=== PATIENT | male | born 1970 | race Caucasian/White ===

== ENCOUNTER → 2023-10-28 06:50 | Outpatient (REF) | payer OTHER, SELFPAY | LOC: HWRAD 06:50 | PROVIDERS: ATTENDING PHYSICIAN Family Medicine | DX: R10.13 Epigastric pain (principal); R06.02 Shortness of breath | CPT/HCPCS: 71046; 76700 ==

== ENCOUNTER 2023-11-19 09:12 | Emergency (ER) | payer OTHER, SELFPAY ==
[2023-11-19] VITALS (8 sets, daily range): BP systolic 133–156; BP diastolic 86–106; PULSE 81–89; BMI 30.6
--- NOTE | 2023-11-19 09:36 | ED.GENMED ---
History of Present Illness
<Dk Anders PA-C - Last Filed: 11/22/23 21:12>
General
Chief Complaint: Dizziness
Source: patient
Exam Limitations: none
Time Seen by Provider: 11/19/23 09:17
Travel History
Have you had any contact with someone who has COVID-19?: No
Do you have any symptoms of coronavirus? Fever > 100 degrees, chills, cough, shortness of breath, sore throat, loss of taste or smell, muscle aches, or headache?: No
History of Present Illness
History of Present Illness:
53-year-old male with history of hypertension presents complaining of intermittent dizziness over the past 2 to 3 weeks. Initially thought to have sinus infection by family doctor and finished a course of antibiotics. He feels as though his
sinuses are clear however he still notes intermittent headaches mainly on the left side dizziness. He feels an off steady disequilibrium sensation. Sometimes this is made worse when he turns his head. It tends to fatigue with time. No unilateral
arm numbness or weakness. No slurred speech or aphasia. He denies any vision change. No fever. He notes worsening headache as well. He takes losartan 25 mg daily. No known injury. No chest pain. No other time
Past History
<Dk Anders PA-C - Last Filed: 11/22/23 21:12>
Past History
ED Past Medical History: GERD, HTN and Other (chronic sinusitis, Kidney stones)
ED Past Surgical History: Other (Sinus surgery)
Social History
Tobacco: Non-smoker
Alcohol: None
Personal:
Living: with family
Phy Exam
<Dk Anders PA-C - Last Filed: 11/22/23 21:12>
Physical Exam
Physical Exam:
General: Well-appearing male no acute respiratory distress
HEENT: Normocephalic atraumatic pupils equal round reactive to light no obvious nystagmus TMs normal
Heart: Regular rate and rhythm no murmurs
Lungs: Clear to auscultation bilaterally no wheezing
Neurologic: Normal gait finger-nose [id number] intact. No obvious nystagmus. Subtle increased dizziness when he turns his head to the left when supine. Face is symmetric extraocular motions are intact no aphasia or dysarthria
Musculoskeletal exam: No significant tenderness to palpation of the cervical spine
Extremities: No cyanosis
Course
<Dk Anders PA-C - Last Filed: 11/22/23 21:12>
Orders/Labs/Results
Orders:
Orders
11/19/23 09:30
Orthostatic VS- Treatment ONCE
11/19/23 09:31
Electrocardiogram (*1) Urgent
Reason for Study: Vertigo / Dizzy
EKG- Treatment ONCE
11/19/23 09:34
CT Angio Neck W/Wo Iv Contrast [CT Neck Angio W/wo Iv Contrast] Urgent
Comment:
Reason For Exam: neck pain, dizzy
11/19/23 09:35
CT Head W/o Iv Contrast Urgent
Comment:
Reason For Exam: headache, dizzy
11/19/23 09:42
Complete Blood Count/With Diff Urgent
Comprehensive Metabolic Panel Urgent
Sed Rate [Erythrocyte Sed Rate] Urgent
Abnormal Lab Results
11/19/23
09:42
MCH 31.2 H pg
(27.0-31.0)
Glucose 112 H mg/dl
(70-99)
Calcium 10.3 H mg/dl
(8.4-10.2)
11/19/23 09:42
11/19/23 09:42
Vital Signs
Initial and Last Documented VS:
Initial Vital Signs
Temp Pulse Resp BP Pulse Ox
99.3 F 98 20 156/106 99
11/19/23 09:15 11/19/23 09:15 11/19/23 09:15 11/19/23 09:15 11/19/23 09:15
Last Documented Vital Signs
Temp Pulse Resp BP Pulse Ox
99.3 F 98 20 133/93 96
11/19/23 09:15 11/19/23 09:15 11/19/23 09:15 11/19/23 12:00 11/19/23 12:45
<Graham Ogden MD - Last Filed: 11/19/23 11:01>
Orders/Labs/Results
Orders:
Orders
11/19/23 09:30
Orthostatic VS- Treatment ONCE
11/19/23 09:31
Electrocardiogram (*1) Urgent
Reason for Study: Vertigo / Dizzy
EKG- Treatment ONCE
11/19/23 09:34
CT Angio Neck W/Wo Iv Contrast [CT Neck Angio W/wo Iv Contrast] Urgent
Comment:
Reason For Exam: neck pain, dizzy
11/19/23 09:35
CT Head W/o Iv Contrast Urgent
Comment:
Reason For Exam: headache, dizzy
11/19/23 09:42
Complete Blood Count/With Diff Urgent
Comprehensive Metabolic Panel Urgent
Sed Rate [Erythrocyte Sed Rate] Urgent
Abnormal Lab Results
11/19/23
09:42
MCH 31.2 H pg
(27.0-31.0)
Glucose 112 H mg/dl
(70-99)
Calcium 10.3 H mg/dl
(8.4-10.2)
11/19/23 09:42
11/19/23 09:42
Vital Signs
Initial and Last Documented VS:
Initial Vital Signs
Temp Pulse Resp BP Pulse Ox
99.3 F 98 20 156/106 99
11/19/23 09:15 11/19/23 09:15 11/19/23 09:15 11/19/23 09:15 11/19/23 09:15
Last Documented Vital Signs
Temp Pulse Resp BP Pulse Ox
99.3 F 98 20 133/93 96
11/19/23 09:15 11/19/23 09:15 11/19/23 09:15 11/19/23 12:00 11/19/23 12:45
<Dk Anders PA-C - Last Filed: 11/22/23 21:12>
MDM/Problems Addressed
Differential Diagnosis Includes:
Headache neck pain and dizziness. Consider vertigo versus dissection versus CVA
Symptoms have been ongoing for 2 to 3 weeks. Neurologically is intact. Will check labs CT of head and CT angio of the neck
<Dk Anders PA-C - Last Filed: 11/22/23 21:12>
*Critical Care Note
Total Time (30-74mins, 75-104mins- exclusive of procedures): Not Applicable
<Dk Anders PA-C - Last Filed: 11/22/23 21:12>
Update Note
Update Note:
CT head negative. CT angio of the neck also negative for acute finding. There is less than 50% stenosis in the ICA origin bilaterally and no evidence of dissection. Will start patient on a baby aspirin and have him follow-up with family doctor
for further evaluation and imaging. Orthostatic vital signs without any significance today.
ED Attending Note
<Dk Anders PA-C - Last Filed: 11/22/23 21:12>
-
Portions of this chart may have been created with voice recognition software.� Occasional wrong word or��sound alike� substitutions may have occurred due to the inherent limitations of voice recognition software.
<Graham Ogden MD - Last Filed: 11/19/23 11:01>
ED Attending Note
Patient seen and examined by attending physician: Yes
I performed the substantive portion of visit, reviewed & personally made and approve the management plan that is documented in note by myself or SELIN.: Yes
ED Attending Note:
Patient with over 2 weeks of episodic disequilibrium. Episode worse today with sudden head turning. Some left posterior neck pain with this. No other neurologic symptoms. Some mild headache. No speech issues double vision. No significant gait
issues.
On exam patient is nontoxic in no distress. Extraocular muscles intact. Speech is normal. Cranial nerves II through XII intact. Gwsyhc-[id number]-[id number] normal. Obaa-nl-[id number] normal. No drift. Light touch intact. In no distress. Lungs clear and equal.
No carotid bruits.
Medically stable. Workup in progress. CT angio to rule out vertebral dissection. Doubt central issue. Has had symptoms for over 2 weeks positional in nature. If all is negative does not warrant admission or emergent MRI. To cover bases baby
aspirin per day and follow-up with primary care.
Discharge Plan
Departure
Patient Disposition: Home (Routine Discharge)
Date of Disposition: 11/19/23
Time of Disposition: 12:55
Patient with high blood pressure during this ER visit?: No
Discharge Problem:
Dizziness
Instructions: Dizziness
Prescriptions:
New
meclizine 25 mg tablet
25 mg PO TID PRN (Reason: dizziness) Qty: 10 0RF
No Action
losartan 25 MG tablet
25 mg PO DAILY@1999
fluticasone propionate 1 SPRAY spray,suspension
1 spray intranasal BID
Referrals:
Romina Aguilar, [Family Provider] -
Activity Restrictions/Additional Instructions:
Please start baby aspirin daily. Please continue current medication. Follow-up with your family doctor for further evaluation
Interventions
Interventions:
*Risk Screen - Suicide Last Done: 11/19/23 09:13
*General Assessment Last Done: 11/19/23 09:13
*Neglect/Abuse Screening Last Done: 11/19/23 09:13
ED- Fall Risk Assessment Last Done: 11/19/23 09:38
*ED COVID-19 Vaccine History Last Done: 11/19/23 09:38
*Nursing Disposition Last Done: 11/19/23 13:26
ED- Neurological Assessment Last Done: 11/19/23 09:38
ED- Cardiac Assessment Last Done: 11/19/23 09:38
ED Swallowing Screen Last Done: 11/19/23 11:09
Discharge Date and Time
Discharge Date/Time: 11/19/23 13:27
Print Language: LUXEMBOURGER
[2023-11-19 09:59] LABS: % Basophils 0.7 % (0-2); % Eosinophils 2.7 % (0-6); % Immature Granulocytes 0.2 % (0-0.5); % Lymphocytes 33.9 % (20.5-51.1); % Monocytes 6.8 % (1.7-9.3); % Neutrophils 55.7 % (42.2-75.2); Absolute Basophils 0.1 10^3/uL (0-0.2); Absolute Eosinophils 0.2 10^3/uL (0-0.7); Absolute Monocytes 0.6 10^3/uL (0.1-0.6); Absolute Neutrophils 4.9 10^3/uL (1.4-6.5); Hematocrit 49.8 % (39.0-52.0); Hemoglobin 17.2 g/dL (13.0-18.0); Mean Corp Hgb Conc. 34.5 g/dL (33.0-37.0); Mean Corpuscular Hgb 31.2 pg (27.0-31.0); Mean Corpuscular Volume 90.2 fL (80.0-94.0); Mean Platelet Volume 8.2 fL (7.4-10.4); Nucleated Red Blood Cells % 0 % (-); Platelet Count 305 10^3/uL (130-400); Red Blood Cell Count 5.52 10^6/uL (4.70-6.10); Red Cell Dist. Width 12.5 % (11.5-14.5); White Blood Cell Count 8.8 10^3/uL (4.8-10.8)
[2023-11-19 10:18] LABS: ALT (SGPT) 34 U/L (0-50); AST (SGOT) 28 U/L (17-59); Albumin 4.8 g/dl (3.5-5.0); Alkaline Phosphatase 67 U/L (38-126); Blood Urea Nitrogen 19 mg/dl (9-20); Calcium 10.3 mg/dl (8.4-10.2); Carbon Dioxide 23 mmol/L (22-30); Chloride 106 mmol/L (98-107); Estimated Creatinine Clearance 98 ml/min; Glucose 112 mg/dl (70-99); Potassium 4.4 mmol/L (3.5-5.1); Sodium 138 mmol/L (135-145); Total Bilirubin 0.6 mg/dl (0.2-1.3); Total Protein 7.7 g/dl (6.3-8.2); eGFR > 60.00
[2023-11-19 10:34] LABS: Erythrocyte Sed Rate 9 mm/hour (0-20)
== END 2023-11-19 13:27 | disposition home or self-care (01) ==
LOC: EMR 09:12
PROVIDERS: Physician Assistant; EMERGENCY PHYSICIAN Emergency Medicine; FAMILY PHYSICIAN Family Medicine
DX: R51.9 Headache, unspecified (principal); R42 Dizziness and giddiness; M54.2 Cervicalgia
CPT/HCPCS: 99285; 70450; 70498; 80053; 85025; 85652; 93005; Q9967

== ENCOUNTER → 2024-07-04 06:16 | Outpatient (REF) | payer OTHER, SELFPAY ==
[2024-07-04 09:46] LABS: Hematocrit 50.5 % (39.0-52.0); Hemoglobin 16.9 g/dL (13.0-18.0); Mean Corp Hgb Conc. 33.5 g/dL (33.0-37.0); Mean Corpuscular Volume 92.5 fL (80.0-94.0); Mean Platelet Volume 8.9 fL (7.4-10.4); Platelet Count 290 10^3/uL (130-400); Red Blood Cell Count 5.46 10^6/uL (4.70-6.10); Red Cell Dist. Width 12.7 % (11.5-14.5); White Blood Cell Count 7.6 10^3/uL (4.8-10.8)
[2024-07-04 09:52] LABS: ALT (SGPT) 35 U/L (0-50); AST (SGOT) 28 U/L (17-59); Albumin 4.6 g/dl (3.5-5.0); Alkaline Phosphatase 54 U/L (38-126); Blood Urea Nitrogen 14 mg/dl (9-20); Calcium 9.4 mg/dl (8.4-10.2); Carbon Dioxide 24 mmol/L (22-30); Chloride 104 mmol/L (98-107); Glucose 107 mg/dl (70-99); HDL Cholesterol 40 mg/dl; LDL Cholesterol, Calculated 133 mg/dl; Potassium 4.1 mmol/L (3.5-5.1); Sodium 142 mmol/L (135-145); Total Bilirubin 0.4 mg/dl (0.2-1.3); Total Cholesterol 212 mg/dl (50-199); Total Protein 7.1 g/dl (6.3-8.2); Triglyceride 196 mg/dl (10-149); Very Low Density Lipoprotein 39 mg/dl (0-30); eGFR > 60.00
[2024-07-04 10:24] LABS: % Basophils 0.7 % (0-2); % Eosinophils 4.9 % (0-6); % Immature Granulocytes 0.3 % (0-0.5); % Lymphocytes 50.4 % (20.5-51.1); % Monocytes 7.5 % (1.7-9.3); % Neutrophils 36.2 % (42.2-75.2); Absolute Basophils 0.1 10^3/uL (0-0.2); Absolute Eosinophils 0.4 10^3/uL (0-0.7); Absolute Lymphocytes 3.8 10^3/uL (1.2-3.4); Absolute Monocytes 0.6 10^3/uL (0.1-0.6); Absolute Neutrophils 2.8 10^3/uL (1.4-6.5); Nucleated Red Blood Cells % 0 % (-); PSA, Total - Screen 1.89 ng/ml (0.0-4.0)
[2024-07-04 10:29] LABS: Glycohemoglobin (HgbA1c) 5.6 % (4.0-5.6)
== END ==
LOC: HWLAB 06:16
PROVIDERS: ATTENDING PHYSICIAN Family Medicine
DX: R73.01 Impaired fasting glucose (principal); Z00.00 Encounter for general adult medical examination without abnormal findings; I10 Essential (primary) hypertension; E78.2 Mixed hyperlipidemia; Z68.29 Body mass index [BMI] 29.0-29.9, adult; Z12.5 Encounter for screening for malignant neoplasm of prostate
CPT/HCPCS: 36415; 80053; 80061; 83036; 85025; G0103

== ENCOUNTER 2024-08-23 06:23 | Day surgery (SDC) | payer OTHER, SELFPAY ==
[2024-08-04 08:49] LABS: Hematocrit 48.3 % (39.0-52.0); Hemoglobin 16.4 g/dL (13.0-18.0); Mean Corpuscular Hgb 31.7 pg (27.0-31.0); Mean Corpuscular Volume 93.2 fL (80.0-94.0); Mean Platelet Volume 8.7 fL (7.4-10.4); Platelet Count 280 10^3/uL (130-400); Red Blood Cell Count 5.18 10^6/uL (4.70-6.10); Red Cell Dist. Width 12.7 % (11.5-14.5); White Blood Cell Count 8.1 10^3/uL (4.8-10.8)
[2024-08-04 09:18] LABS: ALT (SGPT) 35 U/L (0-50); AST (SGOT) 27 U/L (17-59); Albumin 4.6 g/dl (3.5-5.0); Alkaline Phosphatase 50 U/L (38-126); Blood Urea Nitrogen 15 mg/dl (9-20); Carbon Dioxide 26 mmol/L (22-30); Chloride 106 mmol/L (98-107); Glucose 103 mg/dl (70-99); Potassium 4.3 mmol/L (3.5-5.1); Sodium 143 mmol/L (135-145); Total Bilirubin 0.8 mg/dl (0.2-1.3); Total Protein 7.1 g/dl (6.3-8.2); eGFR > 60.00
[2024-08-04 13:29] VITALS: BMI 27.1
[2024-08-16 15:08] VITALS: BMI 27.1
[2024-08-23] VITALS (12 sets, daily range): BP systolic 132–155; BP diastolic 82–102; BMI 27.1
[2024-08-23] MEDS: CELEBREX 200 MG PO (09:11)
[2024-08-23] MEDS: NORMOSOL-R/PLASMALYTE-A 1000 IV (09:12)
[2024-08-23] MEDS: SKELAXIN 800 MG PO (09:12)
[2024-08-23] MEDS: LYRICA 150 MG PO (09:12)
[2024-08-23] MEDS: TYLENOL 1000 MG PO (09:12)
== END 2024-08-23 15:00 | disposition home or self-care (01) ==
LOC: SDS 06:23
PROVIDERS: ATTENDING PHYSICIAN Orthopaedic Surgery Orthopaedic Surgery of the Spine; FAMILY PHYSICIAN Family Medicine
DX: M50.222 Other cervical disc displacement at C5-C6 level (principal); M50.022 Cervical disc disorder at C5-C6 level with myelopathy; M47.12 Other spondylosis with myelopathy, cervical region
CPT/HCPCS: 22554; 22551; 22853; 22845; C1776; 36415; 72020; 80053; 85027; 87070; 93005; C1713

== ENCOUNTER → 2024-11-17 14:04 | Outpatient (REF) | payer OTHER, SELFPAY | LOC: RAD 14:04 | PROVIDERS: FAMILY PHYSICIAN Family Medicine | DX: R31.0 Gross hematuria (principal) | CPT/HCPCS: 74178; Q9967 ==

== ENCOUNTER → 2025-02-08 07:21 | Outpatient (REF) | payer BC, SELFPAY | LOC: PAVMRI 07:21 | DX: N28.1 Cyst of kidney, acquired (principal) | CPT/HCPCS: 74183; A9575 ==

== ENCOUNTER → 2025-07-19 08:08 | Outpatient (REF) | payer BC, SELFPAY ==
[2025-07-19 09:02] LABS: Hematocrit 50.4 % (39.0-52.0); Hemoglobin 17.0 g/dL (13.0-18.0); Mean Corp Hgb Conc. 33.7 g/dL (33.0-37.0); Mean Corpuscular Volume 91.6 fL (80.0-94.0); Nucleated Red Blood Cells % 0 % (-); Platelet Count 310 10^3/uL (130-400); Red Cell Dist. Width 12.7 % (11.5-14.5)
[2025-07-19 09:25] LABS: ALT (SGPT) 28 U/L (0-50); AST (SGOT) 24 U/L (17-59); Albumin 4.9 g/dl (3.5-5.0); Alkaline Phosphatase 49 U/L (38-126); Blood Urea Nitrogen 18 mg/dl (9-20); Calcium 9.5 mg/dl (8.4-10.2); Carbon Dioxide 28 mmol/L (22-30); Chloride 104 mmol/L (98-107); Glucose 93 mg/dl (70-99); HDL Cholesterol 41 mg/dl; LDL Cholesterol, Calculated 142 mg/dl; Potassium 4.7 mmol/L (3.5-5.1); Sodium 139 mmol/L (135-145); Total Protein 7.7 g/dl (6.3-8.2); Very Low Density Lipoprotein 33 mg/dl (0-30); eGFR > 60.00
[2025-07-19 09:46] LABS: Glycohemoglobin (HgbA1c) 5.7 % (4.0-5.9)
[2025-07-19 09:53] LABS: PSA, Total - Screen 2.20 ng/ml (0.0-4.0); TSH 1.08 uIU/ml (0.47-4.68)
== END ==
LOC: REG 08:08
PROVIDERS: ATTENDING PHYSICIAN Family Medicine
DX: Z00.00 Encounter for general adult medical examination without abnormal findings (principal); I10 Essential (primary) hypertension; E78.2 Mixed hyperlipidemia; R73.01 Impaired fasting glucose; Z12.5 Encounter for screening for malignant neoplasm of prostate
CPT/HCPCS: 36415; 80053; 80061; 83036; 84443; 85025; G0103

== ENCOUNTER 2025-08-08 07:34 | Emergency (ER) | payer BC, SELFPAY ==
[2025-08-08 07:46] VITALS: BP 137/96
--- NOTE | 2025-08-08 09:32 | ED.GENMED ---
History of Present Illness
General
Chief Complaint: Dizziness
Time Seen by Provider: 08/08/25 08:56
History of Present Illness
History of Present Illness:
55-year-old male with history of high blood pressure presenting to the emergency department for episode of dizziness. Patient reports a few hours prior to arrival he was driving. He had a sharp pain behind the left eye and that followed with
dizziness and blurred vision. Symptoms lasted about 2 minutes. He got to work and reported that he still felt a little bit off which prompted him to come to the hospital. Notes prior history of vertigo and has had issues with dizziness in the
past, in October 2023. At that time patient did have CT imaging of his head and his neck, without significant acute pathology. Notes that his symptoms have resolved. Has had headaches in the past, unclear diagnosis of migraines. Denies any
weakness or numbness to his extremities. Denies any known history of stroke in the past. Denies additional acute medical complaints
Past History
Past History
ED Past Medical History: GERD, HTN and Other (chronic sinusitis, Kidney stones)
ED Past Surgical History: Other (Sinus surgery)
Social History
Tobacco: Non-smoker
Alcohol: None
Personal:
Living: with family
Phy Exam
Physical Exam
Physical Exam:
General: Well-appearing, no clinical signs of dehydration, nontoxic and in no acute distress
HEENT: protecting airway, pupils equal and reactive, mild nystagmus when looking toward the left which did produce dizziness
Neck: appears supple
CV: Normal heart rate, regular rhythm
Resp: No accessory muscle use, no increased work of breathing, lungs clear to auscultation bilaterally
Abd: No distention
Extremities: No deformities, no swelling
Neuro: alert, no focal neurologic deficit
: deferred
Rectal: deferred
Psych: Normal affect
Skin: Intact
Course
Orders/Labs/Results
Orders:
Orders
08/08/25 09:20
Electrocardiogram (*1) Stat
Reason for Study: Other
Other Reason for Exam: neuro symptoms
CT Head W/o Iv Contrast Urgent
Comment:
Reason For Exam: episode of dizziness and L-eye blurry/headache
EKG- Treatment ONCE
08/08/25 09:42
Complete Blood Count/With Diff Urgent
Comprehensive Metabolic Panel Urgent
Abnormal Lab Results
08/08/25
09:42
Glucose 108 H mg/dl
(70-99)
08/08/25 09:42
08/08/25 09:42
Vital Signs
Initial and Last Documented VS:
Initial Vital Signs
Temp Pulse Resp BP Pulse Ox
98.7 F 99 20 137/96 99
08/08/25 07:46 08/08/25 07:46 08/08/25 07:46 08/08/25 07:46 08/08/25 07:46
Last Documented Vital Signs
Temp Pulse Resp BP Pulse Ox
98.7 F 71 16 131/92 97
08/08/25 07:46 08/08/25 10:03 08/08/25 10:03 08/08/25 10:00 08/08/25 10:00
MDM/Problems Addressed
MDM/Problems Addressed:
55-year-old male with history of hypertension presenting for episode of headache and dizziness with blurred vision, lasting 2 minutes. Vital signs on arrival are normal.
On exam patient is resting comfortably, no acute distress or discomfort. Unremarkable cardiac And pulmonary exam. No present focal neurologic deficits. Mild nystagmus when looking toward the left, which did reproduce some dizziness. Patient
currently asymptomatic. Notes at symptom onset, pressure and headache behind the left eye with visual changes. At this time suspect more likely ocular migraine versus vertigo. Lower suspicion for acute CVA given resolution of symptoms and
reassuring examination. CT angio reviewed from 2023, no focal stenosis or calcifications. Will screen with CT brain, however this time again lower suspicion for acute central neurologic process. Will also obtain EKG and laboratory analysis.
12:00 - Patient's EKG is nonischemic. Labs are unremarkable and CT is negative. Patient remains asymptomatic. At this time feel stable for discharge, however did recommend interval follow-up with his primary care doctor. Strict return
precautions were communicated, including any return of symptoms. Patient verbalized understanding
*Pulse Oximetry
SaO2: 99
Oxygen Mode of Delivery: Room air
Patient hypoxic: no
*EKG
Interpreted by ED Provider?: Yes
EKG Intrepretation Date: 08/08/25
EKG Intrepretation Time: 09:45
Interpretation: normal
Heart Rate: 70
Rate: normal
Rhythm: sinus
Kopperl: normal axis
Interval: normal interval
QRS Pattern: normal QRS
Ischemia: no ischemia
*Critical Care Note
Total Time (30-74mins, 75-104mins- exclusive of procedures): Not Applicable
ED Attending Note
-
Portions of this chart may have been created with voice recognition software.� Occasional wrong word or��sound alike� substitutions may have occurred due to the inherent limitations of voice recognition software.
Discharge Plan
Departure
Prescriptions:
No Action
losartan 25 MG tablet
25 mg PO DAILY@2000
fluticasone propionate 1 SPRAY spray,suspension
1 spray intranasal BID
meclizine 25 mg tablet
25 mg PO TID PRN (Reason: dizziness) Qty: 10 0RF
ezetimibe 10 mg tablet
10 mg PO HS
Claritin-D 12 Hour 5-120 mg Tablet Extended Release 12 Hr
1 tab PO Q12H
acetaminophen [Tylenol] 325 mg Capsule
650 mg PO Q4H PRN (Reason: pain)
ibuprofen [Motrin] 400 mg Tablet
400 mg PO Q6H PRN (Reason: pain)
Referrals:
Romina Aguilar DO [Family Provider, Family Practice]
Interventions
Interventions:
*General Assessment Last Done: 08/08/25 08:59
*Neglect/Abuse Screening Last Done: 08/08/25 08:59
*ED COVID-19 Vaccine History Last Done: 08/08/25 08:59
*ED Influenza Vaccine History Last Done: 08/08/25 08:59
[facility] Fall Risk Assessment Tool Last Done: 08/08/25 08:58
*Risk Screen - Suicide (C-SSRS) Last Done: 08/08/25 08:59
ED- Neurological Assessment Last Done: 08/08/25 08:59
ED Swallowing Screen Last Done: 08/08/25 09:10
Discharge Date and Time
Print Language: GREEK
[2025-08-08 09:42] VITALS: BP 133/84
[2025-08-08 09:56] LABS: Hematocrit 48.5 % (39.0-52.0); Hemoglobin 16.6 g/dL (13.0-18.0); Mean Corp Hgb Conc. 34.2 g/dL (33.0-37.0); Mean Corpuscular Volume 90.7 fL (80.0-94.0); Nucleated Red Blood Cells % 0 % (-); Platelet Count 277 10^3/uL (130-400); Red Cell Dist. Width 12.6 % (11.5-14.5)
[2025-08-08 09:59] LABS: ALT (SGPT) 29 U/L (0-50); AST (SGOT) 26 U/L (17-59); Albumin 4.7 g/dl (3.5-5.0); Alkaline Phosphatase 49 U/L (38-126); Blood Urea Nitrogen 14 mg/dl (9-20); Calcium 9.1 mg/dl (8.4-10.2); Carbon Dioxide 24 mmol/L (22-30); Chloride 106 mmol/L (98-107); Glucose 108 mg/dl (70-99); Potassium 4.1 mmol/L (3.5-5.1); Sodium 137 mmol/L (135-145); Total Protein 7.7 g/dl (6.3-8.2); eGFR > 60.00
[2025-08-08 10:00] VITALS: BP 131/92
[2025-08-08 12:13] VITALS: BP 131/87
== END 2025-08-08 12:14 | disposition home or self-care (01) ==
LOC: EMR 07:34
PROVIDERS: EMERGENCY PHYSICIAN Student in an Organized Health Care Education/Training Program; FAMILY PHYSICIAN Family Medicine
DX: G43.109 Migraine with aura, not intractable, without status migrainosus (principal); I10 Essential (primary) hypertension; K21.9 Gastro-esophageal reflux disease without esophagitis; J32.9 Chronic sinusitis, unspecified
CPT/HCPCS: 99284; 70450; 80053; 85025; 93005